=== PATIENT | female | born 1980 | race Caucasian/White ===

== ENCOUNTER → 2023-08-22 | Emergency (ER) | payer OTHER ==
[~2023-08-22] MED LIST: MAGNESIUM OXIDE 400 MG TAB ONE; POTASSIUM 25 MEQ EFFERV TAB ONE
--- OUTSIDE RECORDS SUMMARY | 2023-08-22 16:37 | XMS REPORT | Continuity of Care Document ---
Author Name Unknown Address [address] [place] [address] thconnect Address [address] [place] [address] [address] [place] [address] Care Team Providers Care Car And Yard Supervisor Name Role Phone Yaquelin Hernandez Attending Clinician Unavailable [email or web address] Attending Clinician Unavaila ble [email or web address] Admitting Clinician Unavaila ble Payers Payer Name Policy Type Policy Number Effective Date Expirati on Date Source Encounters Start Date/Time End Date/Time Encounter Type Admission Type Attending Clinicians Care Facility Care Department Encounter ID Source 2023-08-11 00:00:00 2023-08-11 00:00:00 Outpatient Yaquelin Hernandez [facility] [id number] [facility] 2023-06-10 00:00:00 2023-06-10 00:00:00 Outpatient [email or web address] [facility] [id number] [facility]
[2023-08-22 17:10] LABS: Hematocrit 35.1 % (36.0-45.0); Lymphocytes % 16.6 % (15.3-44.8); MCV 86.1 fL (80-100); MPV 9.7 fL (7.6-11.3); Platelets 202 thou/uL (152-406); RBC Red Blood Cell Count 4.08 M/uL (3.86-4.86)
--- NOTE | 2023-08-22 17:15 | RAD REPORT ---
EXAM DESCRIPTION: RAD - Chest Single View - 08/22/2023 5:06 pm CLINICAL HISTORY: near syncope COMPARISON: <Comparisons> FINDINGS: Lines: None. Lungs: No evidence of edema or pneumonia. Pleural: No significant pleural effusions or pneumothorax. Cardiac: The heart size is within normal limits. Mediastinum: Within normal limits. Bones: No acute fractures. Other: None IMPRESSION: No acute cardiopulmonary disease.
[2023-08-22 17:31] LABS: Bilirubin Direct 0.1 mg/dL (0-0.2); Bilirubin Indirect, Calculated 0.4 mg/dL (0.2-0.8); Bilirubin Total 0.5 mg/dL (0.2-1.0); Troponin High Sensitivity 3.9 pg/mL (<58.9)
[2023-08-22 17:34] LABS: Magnesium 1.3 mg/dL (1.6-2.4); Potassium 3.2 mEq/L (3.5-5.1)
--- NOTE | 2023-08-22 20:30 | RAD REPORT ---
EXAM DESCRIPTION: CT - Chest For Pe Angio - 08/22/2023 8:19 pm CLINICAL HISTORY: CHEST PAIN COMPARISON: No comparisons TECHNIQUE: Dynamically enhanced axial 3 mm thick images of the chest were obtained during administra tion of <100> mL Isovue 370 IV contrast. Coronal and oblique reconstruction images were generated and reviewed. Exam utilizes a protocol for optimal evaluation of pulmonary arterial tree. Maximum intensity projections 3D imaging was utilized All CT scans are performed using dose optimization technique as appropriate and may include automated exposure control or mA/KV adjustment according to patient size. FINDINGS: Chest Wall: No suspicious thyroid nodules or pathologic lymphadenopathy. Lungs: No acute abnormality. Pleura: No significant effusions or pneumothorax. Mediastinum/fabi: No pathologic lymphadenopathy. Pulmonary arteries/Aorta: No filling defect identified. No aortic aneurysm. Heart: No significant pericardial effusion. Normal heart size. Upper abdomen: No acute abnormality. Bones: No acute abnormality. IMPRESSION: Negative for pulmonary embolism. No acute findings identified.
--- NOTE | 2023-08-22 20:37 | EDPHYS ---
Physician Documentation [facility] Name: Lulu Oshea Age: 43 yrs Sex: Female : 1980 Arrival Date: 08/22/2023 Time: 16:32 Bed 14 Private MD: ED Physician Quincy Bruno HPI: 08/22 16:47 This 43 yrs old Female presents to ER via Unassigned with complaints of Dizziness. ms3 16:47 43-year-old female with no past medical history presents to the emergency department ms3 via [facility] after feeling her heart race and becoming dizzy while taking a shower at 3:20 PM. Patient states she laid down and her symptoms subsided and then stood back up and wash the shampoo out of her hair and the symptoms returned. EMS notes patient twelve-lead was sinus tachycardia and patient was orthostatic. EMS administered 400 mL of normal saline.. Historical: - Allergies: 16:48 No Known Allergies; bp - Home Meds: 16:48 None [Active]; bp - PMHx: 16:48 None; bp - Immunization history:: Adult Immunizations up to date. - Social history:: Smoking status: Patient denies any tobacco usage or history of. ROS: 16:59 Constitutional: Negative for fever, and chills. Neck: Negative for injury, pain, and ms3 swelling, Cardiovascular: Negative for chest pain, and palpitations. Respiratory: Negative for shortness of breath, cough, wheezing, and pleuritic chest pain, Abdomen/GI: Negative for abdominal pain, nausea, vomiting, diarrhea, and constipation, MS/Extremity: Negative for injury and deformity, 16:59 Neuro: Positive for near syncope, 16:59 All other systems are negative, Exam: 16:59 Constitutional: This is a well developed, well nourished patient who is awake, alert, ms3 and in no acute distress. Head/Face: Normocephalic, atraumatic. Chest/axilla: Normal chest wall appearance and motion. Nontender with no deformity. Cardiovascular: Regular rate and rhythm with a normal S1 and S2. No gallops, murmurs, or rubs. Normal PMI, no JVD. No pulse deficits. Respiratory: Lungs have equal breath sounds bilaterally, clear to auscultation and percussion. No rales, rhonchi or wheezes noted. No increased work of breathing, no retractions or nasal flaring. Abdomen/GI: Soft, non-tender, with normal bowel sounds. No distension or tympany. No guarding or rebound. No evidence of tenderness throughout. Skin: Warm, dry with normal turgor. Normal color with no rashes, no lesions, and no evidence of cellulitis. MS/ Extremity: Pulses equal, no cyanosis. Neurovascular intact. Full, normal range of motion. 17:10 ECG was reviewed by the Attending Physician. ms3 Vital Signs: 16:46 BP 148 / 75; Pulse 135; Resp 18; Temp 98; Pulse Ox 99% ; bp 18:42 BP 129 / 76; Pulse 77; Resp 15; Pulse Ox 100% ; bp 20:19 BP 110 / 74; Pulse 79; Resp 16; Pulse Ox 98% ; bp 20:49 BP 107 / 62; Pulse 77; Pulse Ox 100% on R/A; tm6 MDM: 16:45 Patient medically screened. ms3 16:59 Differential diagnosis: cardiac arrhythmia, generalized weakness, idiopathic dizziness, ms3 near-syncope. 19:18 Transition of care: After a detail discussion of the patient's case, care is ms3 transferred to Alisha Osborne [facility]. 20:37 Data reviewed: vital signs, nurses notes. Counseling: I had a detailed discussion with kb the patient and/or guardian regarding the historical points, exam findings, and any diagnostic results supporting the discharge/admit diagnosis, lab results, radiology results, the need for outpatient follow up, a 2nd pressman, a family practitioner, to return to the emergency department if symptoms worsen or persist or if there are any questions or concerns that arise at home. 08/22 16:46 Order name: Basic Metabolic Panel; Complete Time: 17:38 ms3 08/22 16:46 Order name: CBC with Diff; Complete Time: 17:38 ms3 08/22 16:46 Order name: LFT's; Complete Time: 17:38 ms3 08/22 16:46 Order name: Magnesium; Complete Time: 17:38 ms3 08/22 16:46 Order name: Troponin HS; Complete Time: 17:38 ms3 08/22 18:41 Order name: D-Dimer; Complete Time: 19:17 bp 08/22 19:29 Order name: Troponin High Sensitivity; Complete Time: 20:36 kb 08/22 16:46 Order name: XRAY Chest (1 view); Complete Time: 17:38 ms3 08/22 19:17 Order name: CT Chest For PE Angio; Complete Time: 20:36 kb 08/22 16:46 Order name: EKG; Complete Time: 16:47 ms3 08/22 16:46 Order name: Cardiac monitoring; Complete Time: 16:50 ms3 08/22 16:46 Order name: EKG - Nurse/Tech; Complete Time: 17:09 ms3 08/22 16:46 Order name: IV Saline Lock; Complete Time: 16:51 ms3 08/22 16:46 Order name: Labs collected and sent; Complete Time: 17:09 ms3 08/22 16:47 Order name: O2 Per Protocol; Complete Time: 16:50 ms3 08/22 16:47 Order name: O2 Sat Monitoring; Complete Time: 16:50 ms3 EC:10 Rate is 79 beats/min. Rhythm is regular. QRS [place] is Normal. MT interval is normal. QRS ms3 interval is normal. QT interval is normal. Clinical impression: Normal ECG. Interpreted by me. Reviewed by me. Administered Medications: 18:58 Drug: Potassium PO Effervescent Tablet 50 mEq PO once; dissolve in 4 ounces of water or bp juice Route: PO; 19:50 Follow up: Response: No adverse reaction pf1 18:58 Drug: Magnesium PO 400 mg PO once Route: PO; bp 19:50 Follow up: Response: No adverse reaction pf1 Disposition Summary: 08/22/23 20:36 Discharge Ordered Notes: Location: Home Condition: Stable kb Diagnosis - Syncope Near kb Followup: kb - With: Emergency Department - When: As needed - Reason: Worsening of condition Followup: kb - With: Private Physician - When: 2 - 3 days - Reason: Recheck today's complaints, Continuance of care, Re-evaluation by your physician Discharge Instructions: - Discharge Summary Sheet kb - Near-Syncope, [id number] kb Forms: - Medication Reconciliation Form kb - Thank You Letter kb - Antibiotic Education kb - Prescription Opioid Use kb - Patient Portal Instructions kb - Leadership Thank You Letter kb Signatures: Dispatcher [employer] EDAlisha Honeycutt, TRE-C Irvin Granado, RN RN bp Quincy Bruno DO DO ms3 Saritha Davis RN pf1 Corrections: (The following items were deleted from the chart) 16:58 16:47 The history from the nurse's notes was reviewed and I agree with what is ms3 documented. ms3 17:02 16:58 Constitutional: Negative for fever, and chills. Neck: Negative for injury, pain, ms3 and swelling, Cardiovascular: Negative for chest pain, and palpitations. Respiratory: Negative for shortness of breath, cough, wheezing, and pleuritic chest pain, Abdomen/GI: Negative for abdominal pain, nausea, vomiting, diarrhea, and constipation, MS/Extremity: Negative for injury and deformity, ms3 17:02 16:58 Skin: Positive for laceration(s), of the scalp, ms3 ms3
--- NOTE | 2023-08-22 20:37 | ER ---
Nurse's Notes [facility] Name: Lulu Oshea Age: 43 yrs Sex: Female : 1980 Arrival Date: 08/22/2023 Time: 16:32 Bed 14 Private MD: Diagnosis: Syncope Near Presentation: 08/22 16:46 Chief complaint: EMS states: DIZZINESS. Coronavirus screen: At this time, the client bp does not indicate any symptoms associated with coronavirus-19. Ebola Screen: No symptoms or risks identified at this time. Initial Sepsis Screen: Does the patient meet any 2 criteria? No. Patient's initial sepsis screen is negative. Does the patient have a suspected source of infection? No. Patient's initial sepsis screen is negative. Risk Assessment: Do you want to hurt yourself or someone else? Patient reports no desire to harm self or others. Onset of symptoms is unknown. Care prior to arrival: Medication(s) given: Normal saline infusion, 500 mL, IV initiated. 18 GA, in the right forearm. 16:46 Method Of Arrival: EMS: [facility] bp 16:46 Acuity: NATALIE 3 bp Triage Assessment: 16:48 General: Appears in no apparent distress. Behavior is calm, cooperative, appropriate bp for age. Pain: Denies pain. Neuro: Reports dizziness. Historical: - Allergies: 16:48 No Known Allergies; bp - Home Meds: 16:48 None [Active]; bp - PMHx: 16:48 None; bp - Immunization history:: Adult Immunizations up to date. - Social history:: Smoking status: Patient denies any tobacco usage or history of. Screenin:49 [facility] ED Fall Risk Assessment (Adult) History of falling in the last 3 months, bp including since admission No falls in past 3 months (0 pts). Abuse screen: Denies threats or abuse. Denies injuries from another. Nutritional screening: No deficits noted. Tuberculosis screening: No symptoms or risk factors identified. Assessment: 17:00 General: SEE TRIAGE NOTE. bp 19:00 Reassessment: No changes from previously documented assessment. Patient is alert, bp oriented x 3, equal unlabored respirations, skin warm/dry/pink. 20:21 Reassessment: PT RETURNED FROM CT. bp 20:49 Reassessment: Patient appears in no apparent distress at this time. Patient and/or tm6 family updated on plan of care and expected duration. Pain level reassessed. Patient is alert, oriented x 3, equal unlabored respirations, skin warm/dry/pink. Vital Signs: 16:46 BP 148 / 75; Pulse 135; Resp 18; Temp 98; Pulse Ox 99% ; bp 18:42 BP 129 / 76; Pulse 77; Resp 15; Pulse Ox 100% ; bp 20:19 BP 110 / 74; Pulse 79; Resp 16; Pulse Ox 98% ; bp 20:49 BP 107 / 62; Pulse 77; Pulse Ox 100% on R/A; tm6 ED Course: 16:45 Patient arrived in ED. ms3 16:45 Quincy Bruno DO is Attending Physician. ms3 16:45 Irvin Fenton, KAUR is Primary Nurse. bp 16:48 Triage completed. bp 16:48 Arm band placed on. bp 16:49 Patient has correct armband on for positive identification. bp 16:50 Inserted saline lock: 18 gauge in right forearm, using aseptic technique. Blood bp collected. 17:08 XRAY Chest (1 view) In Process Unspecified. EDMS 19:22 Alisha Osborne FNP-C is PHCP. kb 20:21 CT Chest For PE Angio In Process Unspecified. EDMS 20:50 No provider procedures requiring assistance completed. IV discontinued, intact, tm6 bleeding controlled, No redness/swelling at site. Pressure dressing applied. 20:58 Provided Education on: follow up and over near syncope. pf1 Administered Medications: 18:58 Drug: Potassium PO Effervescent Tablet 50 mEq PO once; dissolve in 4 ounces of water or bp juice Route: PO; 19:50 Follow up: Response: No adverse reaction pf1 18:58 Drug: Magnesium PO 400 mg PO once Route: PO; bp 19:50 Follow up: Response: No adverse reaction pf1 Medication: 20:50 VIS not applicable for this client. tm6 Outcome: 20:36 Discharge ordered by . kb 20:50 Condition: stable tm6 20:58 Discharged to home ambulatory, with family, pf1 20:58 Discharge instructions given to patient, Instructed on discharge instructions, follow up and referral plans. Demonstrated understanding of instructions, follow-up care, 20:59 Patient left the ED. pf1 Signatures: Dispatcher [employer] EDMS Alisha Osborne FNP-C SCHOOL PSYCHOLOGIST ASSISTANT-Ckb Irvin Fenton, RN RN bp Quincy Bruno, DO ms3 Saritha Davis, RN RN pf1 Janice Sutton RN RN tm6 Corrections: (The following items were deleted from the chart) 16:58 16:47 The history from the nurse's notes was reviewed and I agree with what is ms3 documented. ms3
[2023-08-22 23:56] VITALS: TEMP 98; O2SAT 100
[2023-08-23 00:13] VITALS: BP 107/62
--- NOTE | 2023-08-23 17:35 | EKG ---
Test Date: 2023-08-22 Test Time: 17:06:44 Publishing Specialist: ASHKAN MEASUREMENT RESULTS: Intervals: Rate: 79 OR: 144 QRSD: 82 QT: 376 QTc: 431 Mobile: P: 51 OR: 144 QRS: 76 T: 39 INTERPRETIVE STATEMENTS: Normal sinus rhythm Normal ECG No previous ECG available for comparison Electronically Signed On 08-23-23 17:33:48 MANAGER OF FINANCIAL by Iam Stevenson
== END ==
LOC: ER 16:32
DX: R55 Syncope and collapse (principal)
CPT/HCPCS: 93005; 85025; 80048; 36415; 83735; 85379; 80076; 84484 ×2; 71275; 71045; 99284; Q9967